=== PATIENT | female | born 1960 | race Hispanic/Latino ===

== ENCOUNTER → 2017-12-28 | Outpatient (CLI) | payer BC ==
--- NOTE | 2017-12-30 08:31 | Diagnostic Imaging Report ---
#[id number] - MGSCRBIL #BILATERAL DIGITAL SCREENING MAMMOGRAM WITH CAD: 12/28/2017 CLINICAL: Routine screening. Comparison is made to exams dated: 12/22/2016 mammogram and 12/19/2015 mammogram - [facility]. Current study contains 4 films. The tissue of both breasts is heterogeneously dense. This may lower the sensitivity of mammography. Current study was also evaluated with a Computer Aided Detection (CAD) system. There is a benign intramammary node in both breasts. No significant masses, calcifications, or other findings are seen in either breast. There has been no significant interval change. IMPRESSION: BENIGN There is no mammographic evidence of malignancy. A 1 year screening mammogram is recommended. The patient will be notified by letter of the results. Maurice stokes/yamilex:12/29/2017 12:25:01 [place] [employer]: Macrina RANDLE)(Beth), [facility] letter sent: Compared to Prior B9 Mammogram BI-RADS: 2 Benign
== END | disposition home or self-care (01) ==
LOC: MAMMO 08:08
PROVIDERS: ATTEND Internal Medicine
DX: Z12.31 Encounter for screening mammogram for malignant neoplasm of breast (principal)
CPT/HCPCS: 77067

== ENCOUNTER → 2018-01-10 | Outpatient (CLI) | payer BC ==
--- NOTE | 2018-01-10 11:09 | Diagnostic Imaging Report ---
EXAM: Bone mineral density study 01/10/2018 8:17 AM INDICATION: \S\OSTEOPOROSIS COMPARISON: Baseline DEXA 12/22/2016 FINDINGS: Evaluation of the left hip and lumbar spine was performed. The study is technically adequate. The patient's fracture risk is compared to an age-matched control. The left femoral neck total bone mineral density is 0.868 gm/cm2, the T-score is -0.1 and the total Z-score is 1.1. The total left hip bone mineral density is 1.007 gm/cm2, the T-score is 0.3 and the total Z-score is 1.2. The total left hip BMD change versus baseline is -0.9%. The lumbar spine total bone mineral density is 1.102 gm/cm2, the T-score is 0.5, and the Z-score is 1.7. The lumbar spine BMD change versus baseline is 0.1%. IMPRESSION: Bone mineralization by WHO Classification is normal, the fracture risk is not increased. Signed by: Dr. Neymar Bonds MD on 01/10/2018 11:06 AM
== END ==
LOC: RAD 08:11
PROVIDERS: ATTEND Internal Medicine
DX: M81.0 Age-related osteoporosis without current pathological fracture (principal)
CPT/HCPCS: 77080

== ENCOUNTER → 2019-01-04 | Outpatient (CLI) | payer BC | LOC: MAMMO 08:41 | PROVIDERS: ATTEND Internal Medicine | DX: Z12.31 Encounter for screening mammogram for malignant neoplasm of breast (principal) | CPT/HCPCS: 77067 ==

== ENCOUNTER → 2019-12-21 | Outpatient (CLI) | payer BC | LOC: MAMMO 09:21 | PROVIDERS: ATTEND Internal Medicine | DX: Z12.31 Encounter for screening mammogram for malignant neoplasm of breast (principal) | CPT/HCPCS: 77067 ==